=== PATIENT | female | born 1950 | race Caucasian/White ===

== ENCOUNTER → 2018-04-07 | Day surgery (SDC) | payer MEDICARE, OTHER ==
[~2018-04-07] MED LIST: Lactated Ringers 1,000 ML IV SCH; Propofol 200 MG/20 ML SDV IV ONE
--- NOTE | 2018-04-07 13:56 | OR ---
DATE OF OPERATION: 04/07/2018 PREOPERATIVE DIAGNOSIS: SCREENING COLONOSCOPY. POSTOPERATIVE DIAGNOSIS: SCREENING COLONOSCOPY. SURGEON: Shar Leary MD PROCEDURE: INCOMPLETE COLONOSCOPY DISTAL SIGMOID COLON. 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 COMPLICATIONS: None. SPECIMEN: None. FINDINGS: Incomplete colonoscopy to 40 cm. RECOMMENDATIONS: Would recommend Cologuard on this patient given her extreme tortuosity and fixed curve in the sigmoid. INDICATIONS: The patient was seen for routine physical and sent for a screening colonoscopy. DESCRIPTION OF PROCEDURE: The patient was prepped and draped, placed in left lateral decubitus position. A lubricated Olympus colonoscope was inserted and advanced into the distal sigmoid colon around 35-40 cm. The patient had a severe turn which the scope would not easily pass. Quite a significant amount of pressure was being applied to try to traverse this with a blind pass, but would not work. We put her on both her left side back and right side in 3 different positions to try to get the scope to safely pass this area and could not, and felt it was best to stop at that point. From the 40 cm endy to the anus, there were no signs of any polyps, mass, ulceration, bleeding sites, vascular abnormality, signs of colitis or diverticula. Retroflexion scope in the rectum showed no anal lesions. Air was suctioned, scope was removed without complication. FANG/SHIRLENE /[id number]
== END ==
LOC: CC.SDS 11:13
PROVIDERS: ATTEND Family Medicine
DX: Z12.11 Encounter for screening for malignant neoplasm of colon (principal); K63.89 Other specified diseases of intestine; J30.9 Allergic rhinitis, unspecified; K21.9 Gastro-esophageal reflux disease without esophagitis; K76.89 Other specified diseases of liver; G43.909 Migraine, unspecified, not intractable, without status migrainosus; M81.0 Age-related osteoporosis without current pathological fracture; F17.210 Nicotine dependence, cigarettes, uncomplicated; F41.9 Anxiety disorder, unspecified; Z88.2 Allergy status to sulfonamides; Z88.5 Allergy status to narcotic agent; Z79.899 Other long term (current) drug therapy
CPT/HCPCS: G0104; J2704; J7120; 00811